=== PATIENT | female | born 1955 | race Caucasian/White ===

== ENCOUNTER 2021-08-17 19:26 | Emergency (ER) | payer MEDICARE, OTHER ==
[~2021-08-17] VITALS: Ht 172.7 cm; Wt 99.8 kg
[2021-08-17] MEDS ORDERED: Baclofen20 MG PO (20:47)
[2021-08-17] MEDS ORDERED: BENZ100A PO (20:48)
[2021-08-17] MEDS ORDERED: COLCRYS0.6 MG PO (20:49)
[2021-08-17] MEDS ORDERED: FLUOXETINE HCL60 MG PO (20:49)
[2021-08-17] MEDS ORDERED: FLUT1DIS8 INH (20:50)
[2021-08-17] MEDS ORDERED: POTA8 PO (20:54)
[2021-08-17] MEDS ORDERED: SPIRIVA RESPIMAT4 G3 INH (20:55)
[2021-08-17] MEDS ORDERED: TOPI100 PO (20:57)
[2021-08-17] MEDS ORDERED: TROKENDI XR200 MG PO ×2 (20:57)
[2021-08-17] MEDS ORDERED: TRAZ100 PO (20:58)
[2021-08-17] MEDS ORDERED: Norco 10-325 T1 EACH PO (20:59)
[2021-08-17] MEDS ORDERED: CYCL10 PO (20:59)
[2021-08-17 21:13] LABS: BASOPHILS ABSOLUTE AUTO 0.05 K/mm3 (0.00-0.23); BASOPHILS PERCENT AUTO 1 % (0-2); EOSINOPHILS ABSOLUTE AUTO 0.06 K/mm3 (0.00-0.68); EOSINOPHILS PERCENT AUTO 1 % (0-6); Hematocrit 39.7 % (33.0-51.0); Hemoglobin 12.7 g/dL (11.5-16.0); IMMATURE GRAN ABSOLUTE AUTO 0.01 K/mm3 (0.00-0.10); IMMATURE GRAN PERCENT AUTO 0 % (0-1); LYMPHOCYTES PERCENT AUTO 29 % (21-46); MONOCYTES ABSOLUTE AUTO 0.54 K/mm3 (0.16-1.47); MONOCYTES PERCENT AUTO 7 % (4-13); Mean Corpuscular HGB 30.2 pg (26.0-34.0); Mean Corpuscular Volume 95 fL (80-100); NEUTROPHILS PERCENT AUTO 63 % (41-73); Platelet Count 209 K/mm3 (150-400); RDW Coefficient Variation 13.2 % (11.7-14.2); White Blood Cell Count 8.36 K/mm3 (4.00-11.30)
[2021-08-17 21:21] LABS: Anion Gap 5 mmol/L (6-16); Blood Urea Nitrogen 17 mg/dL (8-24); Bun/Creatinine Ratio 18.4 (12.0-20.0); CO2, Blood 29 mmol/L (21-32); Calcium, Blood 8.9 mg/dL (8.5-10.1); Chloride, Blood 108 mmol/L (98-108); Creatinine, Blood 0.93 mg/dL (0.40-1.00); Glomerular Filtration Rate >60 (60-); Glucose, Blood 99 mg/dL (70-99); Potassium, Blood 3.7 mmol/L (3.5-5.5); Sodium, Blood 142 mmol/L (136-145)
== END 2021-08-17 22:30 | disposition home or self-care (01) ==
LOC: ER 19:26
PROVIDERS: Student in an Organized Health Care Education/Training Program
DX: S16.1XXA Strain of muscle, fascia and tendon at neck level, initial encounter (principal); S09.90XA Unspecified injury of head, initial encounter; Z79.899 Other long term (current) drug therapy; W18.11XA Fall from or off toilet without subsequent striking against object, initial encounter
CPT/HCPCS: 70450; 72125; 80048; 85025; 93005; 93010; 96374; 96375; 99285-25; J0780; J1200; J1885

== ENCOUNTER → 2021-08-29 | Outpatient (CLI) | payer MEDICARE, OTHER ==
[~2021-08-29] MED LIST: BENZ100A PO; Baclofen20 MG PO; COLCRYS0.6 MG PO; CYCL10 PO; FLUOXETINE HCL60 MG PO; FLUT1DIS8 INH; Norco 10-325 T1 EACH PO; POTA8 PO; SPIRIVA RESPIMAT4 G3 INH; TOPI100 PO; TRAZ100 PO; TROKENDI XR200 MG PO
== END | disposition home or self-care (01) ==
LOC: LAB 12:10
PROVIDERS: Family Medicine
DX: G35 Multiple sclerosis (principal); Z79.899 Other long term (current) drug therapy
CPT/HCPCS: G0480

== ENCOUNTER 2023-08-10 13:06 | Emergency (ER) | payer MEDICARE, OTHER ==
[~2023-08-10] VITALS: Ht 162.6 cm; Wt 102.1 kg
[~2023-08-10 13:06] MED LIST changes: +ALLOPURINOL100 M1 PO; +FLUTICASONE-SA1 EA10 INH; +FOSAMAX70 MG PO; +FURO40 PO; +NEURONTIN300 MG PO; +OMEP20ER PO
[2023-08-10 13:11] VITALS: BP 142/87
[2023-08-10 13:38] LABS: BASOPHILS ABSOLUTE AUTO 0.06 K/mm3 (0.00-0.23); BASOPHILS PERCENT AUTO 0 % (0-2); EOSINOPHILS ABSOLUTE AUTO 0.07 K/mm3 (0.00-0.68); EOSINOPHILS PERCENT AUTO 1 % (0-6); Hematocrit 44.1 % (33.0-51.0); Hemoglobin 14.2 g/dL (11.5-16.0); IMMATURE GRAN ABSOLUTE AUTO 0.09 K/mm3 (0.00-0.10); IMMATURE GRAN PERCENT AUTO 1 % (0-1); LYMPHOCYTES ABSOLUTE AUTO 2.66 K/mm3 (0.84-5.20); LYMPHOCYTES PERCENT AUTO 20 % (21-46); MONOCYTES ABSOLUTE AUTO 0.76 K/mm3 (0.16-1.47); MONOCYTES PERCENT AUTO 6 % (4-13); Mean Corpuscular HGB 30.4 pg (26.0-34.0); Mean Corpuscular HGB Conc 32.2 g/dL (31.5-36.5); Mean Corpuscular Volume 94 fL (80-100); Mean Platelet Volume 9.7 fL (9.1-12.4); NEUTROPHILS ABSOLUTE AUTO 9.79 K/mm3 (1.96-9.15); NEUTROPHILS PERCENT AUTO 73 % (41-73); Platelet Count 403 K/mm3 (150-400); RDW Coefficient Variation 13.9 % (11.7-14.2); RDW Standard Deviation 47.7 fL (35.1-46.3); Red Blood Cell Count 4.67 M/mm3 (3.80-5.20); White Blood Cell Count 13.43 K/mm3 (4.00-11.30)
[2023-08-10 13:55] LABS: Albumin/Globulin Ratio 0.7 (0.8-1.8); Bilirubin, Total 0.4 mg/dL (0.1-1.0); Bun/Creatinine Ratio 14.4 (12.0-20.0); Calcium, Blood 8.8 mg/dL (8.5-10.1); Creatinine, Blood 0.9 mg/dL (0.40-1.00); Globulin, Blood 4.4 g/dL (2.2-4.0); Potassium, Blood 3.7 mmol/L (3.5-5.5); Total Protein, Blood 7.4 g/dL (6.4-8.2)
[2023-08-10 14:13] LABS: Influenza A, PCR NEGATIVE (NEGATIVE); Influenza B, PCR NEGATIVE (NEGATIVE); Resp Syncytial Virus, PCR NEGATIVE (NEGATIVE); SARS-Cov-2 (COVID-19) PCR, MMC NEGATIVE (NEGATIVE)
[2023-08-10] MEDS ORDERED: Amoxicillin500 MG PO (16:27)
[2023-08-10 16:47] LABS: Source, Urine Clean Catch
[2023-08-10 16:53] LABS: Appearance, Urine Cloudy (Clear); Bilirubin, Urine Neg (Neg); Blood, Urine 5+ (Neg); Color, Urine Brown (P-Yellow); Glucose Qualitative, Urine Neg (Neg); Ketones, Urine Neg (Neg); Leukocyte Esterase, Urine 3+ (Neg); Nitrite, Urine Neg (Neg); Protein, Urine 2+ (Neg); Urobilinogen, Urine NORM (Normal)
[2023-08-10 17:02] LABS: Bacteria Many /hpf; Calcium Oxalate Crystals Mod /hpf; Mucus Light (0-Heavy); Red Blood Cells, Urine TNTC /hpf (0-2); Squamous Epithelial Cells Few /hpf (Few); White Blood Cells, Urine TNTC /hpf (0-5)
== END 2023-08-10 16:41 | disposition home or self-care (01) ==
LOC: ER 13:06
PROVIDERS: Physician Assistant
DX: R31.9 Hematuria, unspecified (principal); R10.30 Lower abdominal pain, unspecified; R91.8 Other nonspecific abnormal finding of lung field; R53.83 Other fatigue; Z79.899 Other long term (current) drug therapy; Z87.440 Personal history of urinary (tract) infections
CPT/HCPCS: 0241U; 71046; 80053; 81001; 85025; 87086; 99283-25

== ENCOUNTER 2023-10-21 16:00 | Emergency (ER) | payer MEDICARE, OTHER ==
[~2023-10-21] VITALS: Ht 172.7 cm; Wt 92.1 kg
[~2023-10-21 16:00] MED LIST changes: +ALBU90OI INH; +Amoxicillin500 MG PO; +FAMO20 PO; -FLUOXETINE HCL60 MG PO; +FLUT.05NI; +GUAI600T33 PO; +HYDR1TAB94 PO; +IPRAT-ALBUT 0.5-3 ML INH; +LACT10SY PO; +POTCHL20ER PO; +Prozac20 MG PO; +TAMS.4ER PO; +TRELEGY ELLIPT1 EAC1 INH
[2023-10-21] MEDS ORDERED: NITR100CA PO (16:22)
[2023-10-21] MEDS ORDERED: NYSTATIN (16:23)
[2023-10-21] MEDS ORDERED: DICLOFENAC SODI50 GM TOP (16:24)
[2023-10-21 16:34] LABS: BASOPHILS ABSOLUTE AUTO 0.09 K/mm3 (0.00-0.23); BASOPHILS PERCENT AUTO 1 % (0-2); EOSINOPHILS ABSOLUTE AUTO 0.25 K/mm3 (0.00-0.68); EOSINOPHILS PERCENT AUTO 1 % (0-6); Hemoglobin 12.8 g/dL (11.5-16.0); IMMATURE GRAN ABSOLUTE AUTO 0.11 K/mm3 (0.00-0.10); IMMATURE GRAN PERCENT AUTO 1 % (0-1); LYMPHOCYTES ABSOLUTE AUTO 2.62 K/mm3 (0.84-5.20); LYMPHOCYTES PERCENT AUTO 15 % (21-46); MONOCYTES ABSOLUTE AUTO 1.01 K/mm3 (0.16-1.47); MONOCYTES PERCENT AUTO 6 % (4-13); Mean Corpuscular HGB 28.8 pg (26.0-34.0); Mean Corpuscular Volume 90 fL (80-100); Mean Platelet Volume 11.1 fL (9.1-12.4); NEUTROPHILS ABSOLUTE AUTO 13.65 K/mm3 (1.96-9.15); NEUTROPHILS PERCENT AUTO 77 % (41-73); Platelet Count 434 K/mm3 (150-400); RDW Coefficient Variation 14.7 % (11.7-14.2); RDW Standard Deviation 49.1 fL (35.1-46.3); Red Blood Cell Count 4.44 M/mm3 (3.80-5.20); White Blood Cell Count 17.73 K/mm3 (4.00-11.30)
[2023-10-21 17:16] LABS: Albumin/Globulin Ratio 0.7 (0.8-1.8); Bilirubin, Total 0.6 mg/dL (0.1-1.0); Bun/Creatinine Ratio 14.9 (12.0-20.0); Calcium, Blood 9.1 mg/dL (8.5-10.1); Creatinine, Blood 0.87 mg/dL (0.40-1.00); Globulin, Blood 4.2 g/dL (2.2-4.0); Potassium, Blood 3.4 mmol/L (3.5-5.5); Total Protein, Blood 7.2 g/dL (6.4-8.2)
[2023-10-21] MEDS ORDERED: Potassium Chloride 20 MEQ TabCR PO ONE (18:40)
[2023-10-21 19:10] VITALS: BP 116/79
== END 2023-10-21 19:11 | disposition home or self-care (01) ==
LOC: ER 16:00
PROVIDERS: Student in an Organized Health Care Education/Training Program
DX: R55 Syncope and collapse (principal); S80.02XA Contusion of left knee, initial encounter; S80.01XA Contusion of right knee, initial encounter; E87.6 Hypokalemia; W18.30XA Fall on same level, unspecified, initial encounter; Z79.899 Other long term (current) drug therapy; J44.89 Other specified chronic obstructive pulmonary disease; G47.33 Obstructive sleep apnea (adult) (pediatric); K21.9 Gastro-esophageal reflux disease without esophagitis; Z87.891 Personal history of nicotine dependence
CPT/HCPCS: 80053; 85025; 93005; 93010; 99284-25; A9270

== ENCOUNTER 2023-10-28 12:31 | Inpatient (IN) | payer MEDICARE, OTHER ==
[~2023-10-28] VITALS: Ht 172.7 cm; Wt 86.7 kg
[~2023-10-28 12:31] MED LIST changes: +DICLOFENAC SODI50 GM TOP; +NITR100CA PO; +NYSTATIN
[2023-10-28 13:13] LABS: BASOPHILS ABSOLUTE AUTO 0.11 K/mm3 (0.00-0.23); BASOPHILS PERCENT AUTO 1 % (0-2); EOSINOPHILS ABSOLUTE AUTO 0.06 K/mm3 (0.00-0.68); EOSINOPHILS PERCENT AUTO 0 % (0-6); Hematocrit 41.7 % (33.0-51.0); Hemoglobin 13.6 g/dL (11.5-16.0); IMMATURE GRAN ABSOLUTE AUTO 0.17 K/mm3 (0.00-0.10); IMMATURE GRAN PERCENT AUTO 1 % (0-1); LYMPHOCYTES ABSOLUTE AUTO 2.99 K/mm3 (0.84-5.20); LYMPHOCYTES PERCENT AUTO 20 % (21-46); MONOCYTES ABSOLUTE AUTO 0.74 K/mm3 (0.16-1.47); MONOCYTES PERCENT AUTO 5 % (4-13); Mean Corpuscular HGB 29.3 pg (26.0-34.0); Mean Corpuscular HGB Conc 32.6 g/dL (31.5-36.5); Mean Corpuscular Volume 90 fL (80-100); NEUTROPHILS PERCENT AUTO 73 % (41-73); Platelet Count 486 K/mm3 (150-400); RDW Coefficient Variation 14.9 % (11.7-14.2); RDW Standard Deviation 48.9 fL (35.1-46.3); Red Blood Cell Count 4.64 M/mm3 (3.80-5.20); White Blood Cell Count 14.77 K/mm3 (4.00-11.30)
[2023-10-28 13:28] LABS: Albumin, Blood 3.2 g/dL (3.4-5.0); Albumin/Globulin Ratio 0.8 (0.8-1.8); Bilirubin, Total 0.7 mg/dL (0.1-1.0); Bun/Creatinine Ratio 24.8 (12.0-20.0); Calcium, Blood 9.7 mg/dL (8.5-10.1); Creatinine, Blood 0.81 mg/dL (0.40-1.00); Globulin, Blood 4.1 g/dL (2.2-4.0); Potassium, Blood 3.8 mmol/L (3.5-5.5); Total Protein, Blood 7.3 g/dL (6.4-8.2)
[2023-10-28] MEDS ORDERED: NS 1,000 ML IV SCH (14:55)
[2023-10-28] MEDS ORDERED: CefTRIAXone Sodium 1,000 MG in NS 100 ML IV ONE (15:10)
[2023-10-28 15:37] LABS: Source, Urine Clean Catch
[2023-10-28 15:42] LABS: Appearance, Urine Hazy (Clear); Blood, Urine 1+ (Neg); Color, Urine Amber (P-Yellow); Glucose Qualitative, Urine Neg (Neg); Ketones, Urine 1+ (Neg); Leukocyte Esterase, Urine 2+ (Neg); Nitrite, Urine Neg (Neg); Protein, Urine 2+ (Neg); Specific Gravity, Urine 1.015 (1.003-1.022); Urobilinogen, Urine 2+ (Normal)
[2023-10-28 15:47] LABS: Bilirubin, Urine 1+ (Neg)
[2023-10-28 15:50] LABS: Bacteria Many /hpf; Squamous Epithelial Cells Mod /hpf (Few); Transitional Epithelial Cells Few /hpf (0-Rare)
[2023-10-28 15:51] LABS: Granular Casts 0-2 /lpf (0); Yeast/Fungi Urine Rare /hpf
[2023-10-28] MEDS ORDERED: Albuterol 2.5 MG/3 ML VIAL INH PRN (18:30)
[2023-10-28] MEDS ORDERED: Lactated Ringer's 1,000 ML IV SCH (18:35)
[2023-10-28] MEDS ORDERED: Ondansetron HCl 2 MG / ML 2ML Vial IV PRN (18:35)
[2023-10-28] MEDS ORDERED: Tiotropium Bromide 2.5 MCG/ACT MIST INHAL (10 ACT/4 GM) INH SCH (18:35)
[2023-10-28] MEDS ORDERED: Metoclopramide HCl 5MG / ML 2ML Vial IV PRN (18:35)
[2023-10-28] MEDS ORDERED: Acetaminophen 325 MG TABLET PO PRN (18:35)
[2023-10-28] MEDS ORDERED: Mometasone/Formoterol MDI 200/5 mcg 13 GM INH SCH (19:10)
[2023-10-28 20:58] VITALS: BP 125/87
[2023-10-28] MEDS ORDERED: Lactobacil 2-S.Thermo-Bifido 1 1 Cap PO SCH (21:00)
--- NOTE | 2023-10-29 05:13 | NUR ---
END OF SHIFT SUMMARY NEW ADMIT FOR N/V/WEAKNESS. PT A&OX4, MCGRATH, WEARS LEFT HEARING AID. HX OF MS, FREQUENT FALLS. REPORTS USING WHEELCHAIR AND ASSIST AT BASELINE. ON CONT PULSE OX, REMAINS >92 ON RA. IVF INFUSING. PT TOLERATING SIPS OF CLEAR LIQUIDS WELL, DENIES NAUSEA.
[2023-10-29 05:21] VITALS: BP 128/86
[2023-10-29 05:49] LABS: BASOPHILS ABSOLUTE AUTO 0.11 K/mm3 (0.00-0.23); BASOPHILS PERCENT AUTO 1 % (0-2); EOSINOPHILS PERCENT AUTO 1 % (0-6); Hemoglobin 11.8 g/dL (11.5-16.0); IMMATURE GRAN PERCENT AUTO 1 % (0-1); LYMPHOCYTES ABSOLUTE AUTO 3.76 K/mm3 (0.84-5.20); LYMPHOCYTES PERCENT AUTO 31 % (21-46); MONOCYTES ABSOLUTE AUTO 0.82 K/mm3 (0.16-1.47); MONOCYTES PERCENT AUTO 7 % (4-13); Mean Corpuscular HGB 28.9 pg (26.0-34.0); Mean Corpuscular HGB Conc 32.8 g/dL (31.5-36.5); Mean Corpuscular Volume 88 fL (80-100); Mean Platelet Volume 11.2 fL (9.1-12.4); NEUTROPHILS ABSOLUTE AUTO 7.27 K/mm3 (1.96-9.15); NEUTROPHILS PERCENT AUTO 60 % (41-73); Platelet Count 379 K/mm3 (150-400); RDW Coefficient Variation 14.8 % (11.7-14.2); RDW Standard Deviation 47.3 fL (35.1-46.3); Red Blood Cell Count 4.08 M/mm3 (3.80-5.20); White Blood Cell Count 12.16 K/mm3 (4.00-11.30)
[2023-10-29] MEDS ORDERED: Omeprazole 20 MG CapCR PO SCH (06:00)
[2023-10-29 06:21] LABS: Bun/Creatinine Ratio 24.1 (12.0-20.0); Calcium, Blood 8.8 mg/dL (8.5-10.1); Creatinine, Blood 0.75 mg/dL (0.40-1.00); Potassium, Blood 3.5 mmol/L (3.5-5.5)
[2023-10-29 07:48] VITALS: BP 126/82
[2023-10-29] MEDS ORDERED: Enoxaparin 40 MG/0.4 ML SYR SC SCH (09:00)
--- NOTE | 2023-10-29 11:52 | NUR ---
MD CALL PT HAS NOT VOIDED. ASSISTED TO BSC AND COULD NT VOID. BLADDER SCAN 524 [address]DER[address] GRIJALVA NOTIFIED AND ORDER FOR STRAIGHT CATH PLACED INTO [facility].
[2023-10-29] MEDS ORDERED: NS 250 ML IV PRN (15:05)
[2023-10-29] MEDS ORDERED: CefTRIAXone Sodium 1,000 MG in NS 100 ML IV SCH (16:00)
[2023-10-29 16:23] VITALS: BP 141/82
--- NOTE | 2023-10-29 17:00 | NUR ---
SHIFT SUMMARY MS LIM IS ABLE TO ANSWER ORIENTATION QUESTIONS, IS [place], HAS SOME WANDERING CONVERSATION AND TRAIN OF THOUGHT. SHE HAS DENIED HAVING NAUSEA TODAY, BUT HAS HAD POOR APPETITE FOR FLUIDS AND HARDLY TOUCHED CLEAR LIQUID MEAL TRAYS SHE DOESN'T LIKE MUCH THAT IS PROVIDED ON THE TRAYS. SHE IS WEAK, TWO PERSON ASSIST TO TRANSFER TO THE CHAIR, SHE SAT UP THIS MORNING AND HAS DECLINED TO GET UP AGAIN SINCE. SHE ATTEMPTED TO VOID THIS AM AND WAS UNABLE. STRAIGHT CATH 625CC DARK YELLOW URINE AT 1210HRS. SHE DENIES THE SENSATION TO VOID. IVF INFUSING. HER SON VISITED HER TODAY. BED LOW, CALL LIGHT IN REACH.
--- NOTE | 2023-10-29 18:35 | NUR ---
RN NOTE MS LIM WAS ASSISTED TO BSC. UNABLE TO VOID. BLADDER SCAN 84CC, AWAITING REPEAT BLADDER SCAN.
[2023-10-29 19:57] VITALS: BP 123/86
[2023-10-30 03:26] VITALS: BP 108/71
--- NOTE | 2023-10-30 07:32 | NUR ---
END OF SHIFT SUMMARY PT A&OX4, [place]. REMAINS ON CONT PULSE OX MONITORING, NO EPISODES OF DESAT. BLADDER SCANS COMPLETED, LAST PVR 350 AFTER INCONTINENT VOID. PT REFUSING PO INTAKE DESPITE GIVEN SEVERAL OPTIONS AVAILABLE, STATING SHE WILL NOT USE ARTIFICIAL SUGARS OR SODIUM, INSTEAD ONLY TAKING MINIMAL SIPS OF WATER.
[2023-10-30 07:44] VITALS: BP 121/73
[2023-10-30] MEDS ORDERED: Benzonatate 100 MG Cap PO PRN (13:55)
[2023-10-30] MEDS ORDERED: HYDROcodone 5-APAP 325 TAB PO PRN (13:55)
[2023-10-30] MEDS ORDERED: Ipratropium/Albuterol SulF 2.5-0.5MG/3 ML Amp INH PRN (13:55)
[2023-10-30] MEDS ORDERED: Alendronate Sodium 70 MG Tablet PO SCH (14:00)
[2023-10-30 15:08] VITALS: BP 117/85
--- NOTE | 2023-10-30 16:54 | NUR ---
SHIFT SUMMARY MS LIM IS ORIENTATED TO QUESTIONS WITH WANDERING CONVERSATION. HARD OF HEARING. SHE HAS HAD POOR PO INTAKE, SHE SAID SHE DOESN'T REALLY LIKE ANYTHING THAT WE ARE GIVING HER TO DRINK, DOESN'T LIKE ARTIFICIAL SWEETENERS DOESN'T LIKE WATER, DOESN'T WANT TEAS. I SPOKE WITH STAFF AT [facility] WHO SAID THAT SHE HAS BEEN OFF OF FLUIDS FOR ABOUT A MONTH PRIOR TO ADMISSION, THAT SHE NORMALLY DRINKS SWEET TEA AND COLA. SHE HAS BEEN INCONTINENT AND CONTINENT OF URINE TODAY. UP TO CHAIR AND BEDSIDE COMMODE FOR SHORT PERIODS OF TIME. IVF CONTINUE. BED LOW, CALL LIGHT IN REACH, BED ALARM ON.
[2023-10-30] MEDS ORDERED: Misc. Topical TOP SCH (17:00)
[2023-10-30] MEDS ORDERED: Potassium Chloride 20 MEQ TabCR PO SCH (17:00)
[2023-10-30 19:08] VITALS: BP 119/73
[2023-10-30] MEDS ORDERED: Topiramate 100 MG Tab PO SCH (21:00)
[2023-10-30] MEDS ORDERED: Lactulose 20 GM/30 ML UDC PO SCH (21:00)
[2023-10-30] MEDS ORDERED: Gabapentin 300 MG Cap PO SCH (21:00)
[2023-10-30] MEDS ORDERED: Famotidine 20 MG Tab PO SCH (21:00)
[2023-10-31 04:52] VITALS: BP 134/78
[2023-10-31 05:48] LABS: BASOPHILS ABSOLUTE AUTO 0.07 K/mm3 (0.00-0.23); BASOPHILS PERCENT AUTO 1 % (0-2); EOSINOPHILS ABSOLUTE AUTO 0.15 K/mm3 (0.00-0.68); EOSINOPHILS PERCENT AUTO 2 % (0-6); Hematocrit 35.3 % (33.0-51.0); Hemoglobin 11.6 g/dL (11.5-16.0); IMMATURE GRAN ABSOLUTE AUTO 0.06 K/mm3 (0.00-0.10); IMMATURE GRAN PERCENT AUTO 1 % (0-1); LYMPHOCYTES ABSOLUTE AUTO 2.59 K/mm3 (0.84-5.20); LYMPHOCYTES PERCENT AUTO 26 % (21-46); MONOCYTES ABSOLUTE AUTO 0.74 K/mm3 (0.16-1.47); MONOCYTES PERCENT AUTO 7 % (4-13); Mean Corpuscular HGB 28.9 pg (26.0-34.0); Mean Corpuscular HGB Conc 32.9 g/dL (31.5-36.5); Mean Corpuscular Volume 88 fL (80-100); NEUTROPHILS ABSOLUTE AUTO 6.35 K/mm3 (1.96-9.15); NEUTROPHILS PERCENT AUTO 64 % (41-73); Platelet Count 306 K/mm3 (150-400); RDW Coefficient Variation 14.9 % (11.7-14.2); RDW Standard Deviation 47.5 fL (35.1-46.3); Red Blood Cell Count 4.01 M/mm3 (3.80-5.20); White Blood Cell Count 9.96 K/mm3 (4.00-11.30)
[2023-10-31 06:21] LABS: Albumin, Blood 2.5 g/dL (3.4-5.0); Albumin/Globulin Ratio 0.8 (0.8-1.8); Bilirubin, Total 0.4 mg/dL (0.1-1.0); Bun/Creatinine Ratio 17.6 (12.0-20.0); Calcium, Blood 8.6 mg/dL (8.5-10.1); Creatinine, Blood 0.51 mg/dL (0.40-1.00); Globulin, Blood 3.2 g/dL (2.2-4.0); Potassium, Blood 2.7 mmol/L (3.5-5.5); Total Protein, Blood 5.7 g/dL (6.4-8.2)
[2023-10-31 07:27] VITALS: BP 136/91
[2023-10-31] MEDS ORDERED: Furosemide 40 MG Tab PO SCH (09:00)
[2023-10-31] MEDS ORDERED: Nystatin 100,000 Unit/GM Ointment 15 GM TOP SCH (09:00)
[2023-10-31] MEDS ORDERED: Tamsulosin HCl 0.4 MG Cap PO SCH (09:00)
[2023-10-31] MEDS ORDERED: Fluticasone 0.05% Nasal Spray SCH (09:00)
[2023-10-31] MEDS ORDERED: Topiramate 100 MG Tab PO SCH (09:00)
[2023-10-31] MEDS ORDERED: GuaiFENesin 600 MG TabCR PO SCH (09:00)
[2023-10-31] MEDS ORDERED: FLUoxetine HCL 20 MG CAP PO SCH (09:00)
[2023-10-31] MEDS ORDERED: Allopurinol 100 MG Tab PO SCH (09:00)
[2023-10-31] MEDS ORDERED: Potassium Chloride 20 MEQ TabCR PO SCH (11:00)
[2023-10-31 15:21] VITALS: BP 123/99
--- NOTE | 2023-10-31 18:05 | NUR ---
SHIFT SUMMARY MS LIM HAS HAD BETTER UOP TODAY. STILL HAS IVF FLUIDS INFUSING, SHE HAS DRANK A LITTLE BIT MORE THAN YESTERDAY BUT STILL HAS VERY POOR PO INTAKE. SHE WAS STARTED ON A REGULAR DIET FOR SUPPER AND ATE A SMALL AMOUNT OF IT. NURSE FROM [facility] IS COMING AT 10AM TOMORROW TO ASSESS HER FOR HER RETURN THERE. SHE HAS BEEN UP TO THE CHAIR AND BEDSIDE COMMODE TODAY WITH SOME INCREASED STRENGTH IN TRANSFERING BUT STILL NOT VERY STEADY. SHE SAID THIS IS HER BASELINE. BED LOW, CALL LIGHT IN REACH. BED ALARM ON.
[2023-10-31 18:15] LABS: Bun/Creatinine Ratio 14.3 (12.0-20.0); Calcium, Blood 8.1 mg/dL (8.5-10.1); Creatinine, Blood 0.49 mg/dL (0.40-1.00); Potassium, Blood 3.5 mmol/L (3.5-5.5)
[2023-10-31 19:41] VITALS: BP 121/82
[2023-11-01 02:32] VITALS: BP 119/65
[2023-11-01 05:27] LABS: BASOPHILS ABSOLUTE AUTO 0.06 K/mm3 (0.00-0.23); BASOPHILS PERCENT AUTO 1 % (0-2); EOSINOPHILS ABSOLUTE AUTO 0.15 K/mm3 (0.00-0.68); EOSINOPHILS PERCENT AUTO 2 % (0-6); Hematocrit 32.4 % (33.0-51.0); Hemoglobin 10.7 g/dL (11.5-16.0); IMMATURE GRAN ABSOLUTE AUTO 0.06 K/mm3 (0.00-0.10); IMMATURE GRAN PERCENT AUTO 1 % (0-1); LYMPHOCYTES ABSOLUTE AUTO 2.61 K/mm3 (0.84-5.20); LYMPHOCYTES PERCENT AUTO 32 % (21-46); MONOCYTES ABSOLUTE AUTO 0.62 K/mm3 (0.16-1.47); MONOCYTES PERCENT AUTO 8 % (4-13); Mean Corpuscular HGB 29.2 pg (26.0-34.0); Mean Corpuscular Volume 89 fL (80-100); Mean Platelet Volume 10.9 fL (9.1-12.4); NEUTROPHILS PERCENT AUTO 57 % (41-73); Platelet Count 291 K/mm3 (150-400); RDW Coefficient Variation 14.8 % (11.7-14.2); RDW Standard Deviation 47.7 fL (35.1-46.3); Red Blood Cell Count 3.66 M/mm3 (3.80-5.20)
[2023-11-01 05:49] LABS: Albumin, Blood 2.2 g/dL (3.4-5.0); Albumin/Globulin Ratio 0.7 (0.8-1.8); Bilirubin, Total 0.4 mg/dL (0.1-1.0); Calcium, Blood 8.3 mg/dL (8.5-10.1); Creatinine, Blood 0.54 mg/dL (0.40-1.00); Potassium, Blood 3.7 mmol/L (3.5-5.5); Total Protein, Blood 5.2 g/dL (6.4-8.2)
[2023-11-01 07:24] VITALS: BP 114/66
--- NOTE | 2023-11-01 15:33 | NUR ---
DISCHARGE NOTE- PT AND SON WERE GIVEN VERBAL AND WRITTEN DISCHARGE INSTRUCTIONS AND ACKNOWLEDGED UNDERSTANDING OF THEM. CLEANING SUPERVISOR DC'D PT IV AND ESCORTED HER OUT VIA WC. NO S&S OF DISTRESS NOTED AT THE TIME OF DISCHARGE.
== END 2023-11-01 15:13 | disposition home health service (06) | DRG 872 ==
LOC: ER 12:31 → MEDS 18:29 → ERHOLD 18:29 → MEDS 20:50
PROVIDERS: Internal Medicine; Nurse Practitioner Acute Care; Student in an Organized Health Care Education/Training Program; ADMIT Student in an Organized Health Care Education/Training Program
DX: A41.9 Sepsis, unspecified organism (principal); N12 Tubulo-interstitial nephritis, not specified as acute or chronic; N18.31 Chronic kidney disease, stage 3a; J44.9 Chronic obstructive pulmonary disease, unspecified; G47.33 Obstructive sleep apnea (adult) (pediatric); R13.10 Dysphagia, unspecified; K21.9 Gastro-esophageal reflux disease without esophagitis; G35 Multiple sclerosis; M10.9 Gout, unspecified; F32.A Depression, unspecified; G89.4 Chronic pain syndrome; K59.09 Other constipation; M54.16 Radiculopathy, lumbar region; N20.0 Calculus of kidney; F51.04 Psychophysiologic insomnia; G40.909 Epilepsy, unspecified, not intractable, without status epilepticus; R32 Unspecified urinary incontinence; M81.0 Age-related osteoporosis without current pathological fracture; M79.7 Fibromyalgia; M19.90 Unspecified osteoarthritis, unspecified site; Z79.83 Long term (current) use of bisphosphonates; Z79.51 Long term (current) use of inhaled steroids; Z79.899 Other long term (current) drug therapy; Z87.891 Personal history of nicotine dependence
CPT/HCPCS: 36415; 51701; 74177; 80048; 80053; 81001; 83605; 83690; 83735; 85025; 87040; 87086; 92610; 93005; 93010; 94640; 94664; 94762; 96361-59; 96365-59; 96375-59; 97110; 97162; 97165; 97530; 99285-25; A9270; J0696; J1650; J2405; J7030; J7050; J7120; Q9967